=== PATIENT | female | born 1975 | race American Indian/Alaskan Native ===

== ENCOUNTER 2019-04-07 18:52 | Emergency (ER) | payer SELFPAY ==
[2019-04-07] MEDS ORDERED: ATROVENT IH ONE (19:17)
[2019-04-07] MEDS ORDERED: PROVENTIL IH ONE (19:17)
--- NOTE | 2019-04-07 19:17 | Emergency Department Report ---
Blank Doc - Documentation Documentation: This is a 44-year-old female that presents with asthma exacerbation and cough. This initial assessment/diagnostic orders/clinical plan/treatment(s) is/are subject to change based on patient's health status, clinical progression and re- assessment by fellow clinical providers in the ED. Further treatment and workup at subsequent clinical providers discretion. Patient/guardians urged not to elope from the ED as their condition may be serious if not clinically assessed and managed. Initial orders include: 1- Patient sent to [facility] for further evaluation and treatment 2- breathing treatment and steroids 3- CXR
[2019-04-07] MEDS ORDERED: DECADRON IM ONE (19:18)
[2019-04-07 21:08] VITALS: BP 118/79
--- NOTE | 2019-04-07 21:27 | Emergency Department Report ---
ED Asthma HPI - General Chief Complaint: Adult Asthma Stated Complaint: ASTHMA ATTACK Time Seen by Provider: 04/07/19 19:16 Source: patient Mode of arrival: Ambulatory Limitations: No Limitations - History of Present Illness Initial Comments: pt is a a 44 y/o aaf who presents for asthma sob wheezing states out of medications x 1 week symptoms worsened 3 days ago there is no fever or chills no n/v no cp no back pain MD Complaint: "asthma attack" Onset/Timin -: days(s) Asthma History: childhood onset Severity: moderate Context: ran out of meds Associated Symptoms: dry cough Treatments Prior to Arrival: other (none) - Related Data Current Asthma Therapy: inhaled bronchodilator, inhaled steroid Previous Rx's Medication Instructions Recorded Last Taken Type ALBUTEROL NEB's [Proventil 0.083% 2.5 mg IH Q4H PRN #1 nebu 04/07/19 Unknown Rx NEBS] Acetaminophen [Acetaminophen TAB] 650 mg PO Q6HR PRN #30 tablet 04/07/19 Unknown Rx Azithromycin [Zithromax Z-ELDON] 250 mg PO DAILY 5 Days #6 tab 04/07/19 Unknown Rx Benzonatate [Tessalon Perles] 100 mg PO Q8HR PRN #30 capsule 04/07/19 Unknown Rx Budesonide/Formoterol Fumarate 2 puff IH BID #1 hfa.aer.ad 04/07/19 Unknown Rx [Symbicort 160-4.5 Mcg Inhaler] predniSONE [Deltasone] 40 mg PO QDAY 5 Days #10 tab 04/07/19 Unknown Rx Allergies Allergy/AdvReac Type Severity Reaction Status Date / Time ibuprofen Allergy Unknown Verified 04/07/19 18:54 ED Review of Systems ROS: Stated complaint: ASTHMA ATTACK Other details as noted in HPI Constitutional: denies: chills, fever Eyes: denies: eye pain, eye discharge, vision change ENT: denies: ear pain, throat pain Respiratory: cough, shortness of breath, wheezing Cardiovascular: denies: chest pain, palpitations Endocrine: no symptoms reported Gastrointestinal: denies: abdominal pain, nausea, diarrhea Genitourinary: denies: urgency, dysuria, discharge Musculoskeletal: denies: back pain, joint swelling, arthralgia Skin: denies: rash, lesions Neurological: denies: headache, weakness, paresthesias Psychiatric: denies: anxiety, depression Hematological/Lymphatic: denies: easy bleeding, easy bruising ED Past Medical Hx - Past Medical History Previous Medical History?: Yes Hx Asthma: Yes Additional medical history: umbilical hernia - Surgical History Additional Surgical History: hernia umbilical - Social History Smoking Status: Current Some Day Smoker - Medications Home Medications: Home Medications Medication Instructions Recorded Confirmed Last Taken Type ALBUTEROL NEB's [Proventil 0.083% 2.5 mg IH Q4H PRN #1 nebu 04/07/19 Unknown Rx NEBS] Acetaminophen [Acetaminophen TAB] 650 mg PO Q6HR PRN #30 tablet 04/07/19 Unknown Rx Azithromycin [Zithromax Z-ELDON] 250 mg PO DAILY 5 Days #6 tab 04/07/19 Unknown Rx Benzonatate [Tessalon Perles] 100 mg PO Q8HR PRN #30 capsule 04/07/19 Unknown Rx Budesonide/Formoterol Fumarate 2 puff IH BID #1 hfa.aer.ad 04/07/19 Unknown Rx [Symbicort 160-4.5 Mcg Inhaler] predniSONE [Deltasone] 40 mg PO QDAY 5 Days #10 tab 04/07/19 Unknown Rx ED Physical Exam - General Limitations: No Limitations General appearance: alert, in no apparent distress - Head Head exam: Present: atraumatic, normocephalic - Eye Eye exam: Present: normal appearance, PERRL, EOMI Pupils: Present: normal accommodation - ENT ENT exam: Present: normal orophraynx, mucous membranes moist. Absent: TM's normal bilaterally, normal external ear exam - Neck Neck exam: Present: normal inspection, full ROM. Absent: tenderness, meningismus, lymphadenopathy, thyromegaly - Expanded Neck Exam Expanded Neck exam: Absent: tenderness, midline deformity, anterior neck swelling, thyroid mass, carotid bruit, tracheal deviation - Respiratory Respiratory exam: Present: normal lung sounds bilaterally, stridor, prolonged expiratory. Absent: respiratory distress, chest wall tenderness - Cardiovascular Cardiovascular Exam: Present: regular rate, normal rhythm, normal heart sounds. Absent: systolic murmur, diastolic murmur, rubs, gallop - GI/Abdominal GI/Abdominal exam: Present: soft, normal bowel sounds. Absent: distended, tenderness, bruit, hernia - Rectal Rectal exam: Present: deferred - Extremities Exam Extremities exam: Present: normal inspection, full ROM, normal capillary refill. Absent: tenderness, pedal edema, joint swelling, calf tenderness - Back Exam Back exam: Present: normal inspection, full ROM. Absent: tenderness, CVA tenderness (R), CVA tenderness (L), muscle spasm, rash noted - Neurological Exam Neurological exam: Present: alert, oriented X3, CN II-XII intact, normal gait, reflexes normal. Absent: motor sensory deficit - Psychiatric Psychiatric exam: Present: normal affect, normal mood - Skin Skin exam: Present: warm, dry, intact, normal color. Absent: rash ED Course Vital Signs 04/07/19 04/07/19 04/07/19 18:54 19:34 21:07 Temperature 98.6 F 97.9 F Pulse Rate 79 57 L Pulse Rate [ 60 Anterior] Respiratory 22 18 Rate Respiratory 18 Rate [Anterior] Blood Pressure 137/95 118/79 [Right] O2 Sat by Pulse 100 100 Oximetry ED Medical Decision Making - Medical Decision Making symptoms improve wheezing resolved plan refill medications follow up with pcp in 2-3 days pt verbalized agreement and understanding of discharge plan. Critical care attestation.: If time is entered above; I have spent that time in minutes in the direct care of this critically ill patient, excluding procedure time. ED Disposition Clinical Impression: Asthma Qualifiers: Asthma severity: moderate Asthma persistence: unspecified Asthma complication type: unspecified Qualified Code(s): J45.909 - Unspecified asthma, uncomplicated Disposition: DC- TO HOME OR SELFCARE Is pt being admited?: No Does the pt Need Aspirin: No Condition: Stable Instructions: Asthma (ED) Prescriptions: Acetaminophen [Acetaminophen TAB] 650 mg PO Q6HR PRN #30 tablet PRN Reason: Pain predniSONE [Deltasone] 40 mg PO QDAY 5 Days #10 tab ALBUTEROL NEB's [Proventil 0.083% NEBS] 2.5 mg IH Q4H PRN #1 nebu PRN Reason: shortness of breath wheezing Budesonide/Formoterol Fumarate [Symbicort 160-4.5 Mcg Inhaler] 2 puff IH BID #1 hfa.aer.ad Benzonatate [Tessalon Perles] 100 mg PO Q8HR PRN #30 capsule PRN Reason: Cough Azithromycin [Zithromax Z-ELDON] 250 mg PO DAILY 5 Days #6 tab [facility] [Primary Care Provider[facility] - 3-5 Days CHOCO MICHAEL MD [Staff Physician] - 3-5 Days Forms: Work/School Release Form(ED) Time of Disposition: 21:34
== END 2019-04-07 21:40 | disposition home or self-care (01) ==
LOC: ED 18:52
DX: J45.909 Unspecified asthma, uncomplicated (principal); F17.200 Nicotine dependence, unspecified, uncomplicated
CPT/HCPCS: 94644; 96372; 99282; J1100